=== PATIENT | female | born 1980 ===

== ENCOUNTER → 2023-01-27 13:48 | Outpatient (REF) | payer BC, SELFPAY ==
--- NOTE | 2023-01-27 13:55 | CA_ITS ---
Transthoracic Echocardiogram Patient (Last, First, Middle): Ember Garsia, Gender: Female Date of : 1980 Age: 42 Procedure Date: 01/27/2023 Procedure Type: Transthoracic Echocardiogram Location: Person Height: 167.64 cm Weight: 111.13 kg BSA: 2.18 m2 Heart Rate: bpm BP: 106 / 70 mmHg Polishing Pad Mounter: Referring MD: Gael Romero MD Yarding Supervisor: Davide Valdovinos MD Symptoms: ABNORMAL EKG R94.31 Study Quality: Fair w Contrast ECG Rhythm: Sinus Conclusions: - Essentially normal study Findings Procedure Information Contrast agent, definity, is being given per protocol without apparent complications. Left Ventricle Normal left ventricular size, thickness, and systolic function. The visually estimated ejection fraction is between 55-60%. Spectral Doppler is indicative of a normal filling pattern. Right Ventricle Normal right ventricular cavity size and systolic function. Atria Both atria are normal in size. Interatrial shunt cannot be excluded. Aortic Valve The aortic valve structure and function is likely normal. There is no aortic valve stenosis. There is no aortic valve regurgitation. Mitral Valve Normal mitral valve structure and function. There is trace mitral valve regurgitation. There is no mitral valve stenosis. Pulmonic Valve The pulmonic valve is likely normal. Tricuspid Valve Normal tricuspid valve structure. There is trace tricuspid valve regurgitation. The right ventricular systolic pressure is normal. The right ventricular systolic pressure is 19 mmHg. Normal right atrial pressure. There is no evidence of pulmonary hypertension. Great Vessels All visible segments of the aorta are normal in size. The pulmonary artery was not well visualized. Venous The inferior vena cava is mildly dilated and collapses greater than 50% with inspiration. Pericardium/Pleural There is no evidence of pericardial effusion. Prior Study Comparison No significant change compared to prior study dated: 01/30/2014. Measurements 2D Linear Measurements IVSd: 1.00 0.6-0.9/0.6-1.0 cm LVIDd: 4.90 3.9-5.3/4.2-5.9 cm LVIDd Index: 2.25 2.4-3.2/2.2-3.1 cm/m2 LVIDs: 3.20 2.0-3.6 cm LVPWd: 0.90 0.7-1.1 cm LA Diam: 3.20 2.7-3.8/3.0-4.0 cm LAIDs Index: 1.47 1.5-2.3 cm/m2 LV Mass: 204.65 67-162/88-224 g LV Mass Index: 93.88 43-95/49-115 g/m2 LVOT Diam: 2.20 3.0+(-)1.3 cm 2D Systolic Function EF 4C: 57.70 >55% EF 2C: 59.60 >55% EF BiP: 59.60 >55% Mitral Valve MV Pk E: 0.61 MV PK A: 0.67 MV Decel Time: 224.00 E/A: 0.90 E'Lateral: 10.10 E'Medial: 9.03 E/E' Med: 6.70 E/E' Lat: 6.00 PHT: 66.00 MVA PHT: 3.33 Decel Keith: 2.71 Aortic Valve AoV Pk Marques: 1.32 AoV Mn Marques: 0.89 AoV VTI: 0.26 AoV Pk Grad: 7.00 Aov Mn Grad: 4.00 PERLA Cont.VTI: 2.70 LVOT LVOT Pk Marques: 0.93 LVOT Mn Marques: 0.57 LVOT VTI: 0.18 LVOT Pk Grad: 3.00 LVOT Mn Grad: 2.00 LVOT Diam: 2.20 LVOT Area: 3.80 Diastolic Function MV Pk E: 0.61 MV Pk A: 0.67 E/A: 0.90 E'Medial: 9.03 E/E' Med: 6.70 E' Laterial: 10.10 E/E' Lat: 6.00 Right Ventricle TAPSE (mm): 25.70 TVS' Marques: 13.40 Tricuspid Valve TR Pk Marques: 2.00 TR Pk Grad: 16.00 RA Press: 3.00 RVSP: 19.00 Great Vessels Aorta Sinus of Valsalva: 2.60 2.0-3.[address] Ridge: 2.40 1.7-3.4 cm Ao Asc: 3.20 2.1-3.4 cm Updated in Other Vendor System with Status of Final Davide Valdovinos MD electronically signed on 01/28/2023 11:51:25 AM with status of Final
== END ==
LOC: HO.CARD 13:48
PROVIDERS: PCP Family Medicine; Visit Provider Family Medicine
DX: R94.31 Abnormal electrocardiogram [ECG] [EKG] (principal)
CPT/HCPCS: 93306; Q9957

== ENCOUNTER → 2023-01-27 13:55 | Outpatient (BNV) | payer BC, SELFPAY | PROVIDERS: PCP Family Medicine; Visit Provider Internal Medicine Cardiovascular Disease | DX: R94.31 Abnormal electrocardiogram [ECG] [EKG] (principal) | CPT/HCPCS: 93306 ==

== ENCOUNTER 2023-01-31 08:40 | Emergency (ER) | payer BC, SELFPAY ==
--- NOTE | ~2023-01-31 | XR_ITS ---
EXAMINATION: XR KNEE, RIGHT CLINICAL INFORMATION: Fall, medial tenderness COMPARISON: None available. TECHNIQUE: Two views of the right knee. FINDINGS: Alignment is anatomic. Minimal medial compartment joint space narrowing. No visible acute fracture or dislocation. No significant joint effusion. XR/XR knee RT 2V IMPRESSION: No radiographic evidence of acute osseous abnormality.
--- NOTE | ~2023-01-31 | XR_ITS ---
EXAMINATION: XR ANKLE, RIGHT CLINICAL INFORMATION: Fall, lateral malleolus tenderness. COMPARISON: None available. TECHNIQUE: AP, lateral, and mortise views of the right ankle. FINDINGS: Lateral ankle soft tissue swelling. There is an oblique mildly displaced fracture of the lateral malleolus. No additional fractures identified. Anterior calcaneal process, fifth metatarsal base appears intact. Ankle mortise is maintained. XR/XR ankle RT 2V IMPRESSION: Lateral ankle soft tissue swelling. Oblique mildly displaced fracture of the lateral malleolus.
[2023-01-31 08:50] VITALS: BP 123/73; PULSE 68; RESP 18; O2SAT 100
[2023-01-31 08:53] VITALS: BP 123/73; PULSE 70; RESP 16; TEMP 36.5; O2SAT 100; BMI 39.7
--- NOTE | 2023-01-31 08:54 | ED.GENADULT ---
HPI - General Adult General Chief complaint: Extremity Injury, Lower Stated complaint: R ankle fracture Time Seen by Provider: 01/31/23 08:54 Source: patient Mode of arrival: ambulatory Limitations: no limitations History of Present Illness HPI narrative: Patient is a 42-year-old female presenting to the emergency department with right ankle and right knee pain after a slip and fall last night. Patient states that she had been drinking alcohol at a alliance party, was walking down a hill and the grass was wet which caused her to slip and fall. She reports that her right leg slid underneath her and she landed with her knee flexed on top of her leg. Denies hitting head, denies loss of consciousness. States friends applied ice to the affected areas. She did not take any Tylenol or ibuprofen as she had been drinking. States later on last night she went swimming in a pool because she thought it would decrease her pain but it did not help. Denies any numbness or tingling. MD complaint: right ankle and knee pain Onset (ago): hour(s) Location: lower extremity Radiation: non-radiation Severity: severe Quality: aching Pain Consistency: constant Relieving factors: rest Exacerbating factors: movement Associated symptoms: denies other symptoms Treatments prior to arrival: none Related Data Allergies Allergy/AdvReac Type Severity Reaction Status Date / Time No Known Allergies Allergy Verified 01/31/23 08:58 Review of Systems Review of Systems: As per HPI. Yes all other systems are reviewed and are negative Constitutional: Constitutional: Reports as per HPI [facility] Social History Social History Advance Directives: Yes Advance Directives Information Provided: Yes Advance Directives on File: No Physical Exam ED Vital Signs: Vital Signs - 24 hr 01/31/23 08:50 01/31/23 08:53 Temperature 97.7 F Pulse Rate 68 70 Respiratory Rate 18 16 Blood Pressure 123/73 123/73 Pulse Oximetry 100 100 Oxygen Delivery Method Room Air Room Air BMI result Body Mass Index 39.7 Vital signs have been reviewed and appear to be correct. Blood pressure normal. Heart rate normal. Respiratory rate normal. Temperature normal. Oxygen saturation normal. Const General: cooperative, healthy appearing and no acute distress Orientation/consciousness: oriented to person, oriented to place, oriented to time and patient oriented x3 Limitations: no limitations HENMT Head: Yes normocephalic and Yes atraumatic Ears: external ears normal General nose exam: Normal external nose present Face and sinus: Yes face symmetric Mouth: oropharynx normal and moist mucous membranes Throat: Yes uvula midline Eyes Pupils: Equal, round and reactive pupils present Neck Neck: Yes normal visual inspection and Yes supple Resp Effort & Inspection: normal respiratory effort and able to speak in complete sentences Auscultation: clear to auscultation bilaterally Cardio Rate: regular rate Rhythm: regular rhythm Heart sounds: S1 normal heart sound present and S2 normal heart sound present GI Palpation (GI): Soft to palpation and nontender Auscultation: normoactive bowel sounds General: Yes no CVA tenderness Back/Spine/Pelvis Back: no CVA tenderness Skin General skin exam: elasticity normal and turgor normal Neuro General: oriented to person, oriented to place, oriented to time, patient oriented x3, moves all extremities, no focal motor deficits and CN's II-XI intact bilaterally Cranial nerves: Yes Equal, round and reactive pupils present Cognition (Neuro): normal cognition Extrem General: Yes full ROM, Yes normal exam except as noted, Yes no pedal edema and Yes no calf tenderness Right lower extremity: normal to inspection, knee Details: normal to inspection, tenderness Location: of the medial joint line, normal ROM and knee ligament exam normal; no swelling, ankle Details: tenderness Location: of the lateral malleolus, swelling Details: laterally and abnormal ROM Details: pain with active ROM Details: with plantar flexion, with dorsiflexion, with inversion (unable r/t pain) and with eversion (unable r/t pain) and foot Details: normal capillary refill, normal to inspection, toes with normal ROM and vascular exam Details: dorsalis pedis pulse present, posterior tibial pulse present and normal capillary refill; no tenderness Psych Mental Status: mental status grossly normal Affect: normal affect Thought process: Normal thought process present Medications Administered Discontinued Medications Generic Name Dose Route Start Last Admin Trade Name Freq PRN Reason Stop Dose Admin Acetaminophen 975 mg 01/31/23 08:58 01/31/23 09:13 Acetaminophen 325 Mg Tablet PO 01/31/23 08:59 975 mg ONCE ONE Administration Ibuprofen 600 mg 01/31/23 08:58 01/31/23 09:14 Ibuprofen 600 Mg Tablet PO 01/31/23 08:59 600 mg ONCE ONE Administration Procedures Orthopedic Splinting/Casting Injury #1: Side: right Lower Extremity Injury Location: ankle Lower Extremity Immobilizer: stirrup splint Other Orthopedic Equipment: crutches Additional Comments: +CMS distal prior to and after application of splint Medical Decision Making Medical Decision Making [facility] Narrative: Patient is a 42-year-old female presenting to the emergency department with right ankle and right knee pain after a slip and fall last night. On exam patient is awake, A+Ox3, VS WNL, afebrile, normal neurological exam without focal deficits, right knee normal to inspection, no edema or ecchymosis, full ROM, tenderness to medial joint line, right lateral ankle swelling and tenderness to palpation of lateral malleolous, tenderness to right foot, full range of motion to all toes of right foot, 2+ DP and PT pulses. Given reported symptoms and physical exam findings, initial differential includes sprain, strain, fracture. Unlikely dislocation. X-ray notable for mildly displaced fracture of lateral malleolus. My interpretation is in agreement with the radiologist's interpretation. Knee x-ray unremarkable, feel pain likely related to strain. JHON wrap applied knee, right ankle splinted as per procedure note. Patient given crutches with instruction. Instructed patient to follow-up with Orthopedics Wednesday. Advised patient to keep right ankle elevated while at rest, apply ice for 10-15 minutes at a time several times daily, alternate Tylenol and ibuprofen as needed for discomfort. Return precautions discussed at bedside. Patient instructed to follow-up with PCP as well. Patient verbalized understanding of and agreement with plan. Differential Diagnosis Differential Diagnoses: The differential diagnosis associated with the presentation includes As per MDM. Independent Interpretation I performed an independent interpretation of an: Plain X-Ray Interpretation: Right lateral malleolus fracture Radiology Impression Discussion of test interpretation with radiology: I have reviewed the radiologist's reading. Radiologist Impression: XR/XR ankle RT 2V IMPRESSION: Lateral ankle soft tissue swelling. Oblique mildly displaced fracture of the lateral malleolus. External Record Review External record reviewed: Inpatient record, Office record and Outpatient record Discharge Plan Discharge Clinical Impression: Fracture of lateral malleolus of right ankle, Strain of right knee Patient Disposition: Home, Self-Care Instructions: Ankle Fracture (DC), Crutch Instructions (ED), Knee Pain (ED) Additional Instructions: You have been evaluated in the emergency department today for right ankle and knee pain. Your x-ray showed an oblique mildly displaced fracture of the lateral malleolus, also known as an ankle fracture. A splint was applied in the emergency department today, it is important that you do not get the splint wet or remove the splint prior to seeing orthopedics. We have provided crutches for you to use while your ankle heals. Please rest, ice, and elevate your ankle while at rest. Do not bear weight on your right ankle until seen by orthopedics. We recommend you take 600mg ibuprofen every 6 hours or 650mg Tylenol every 6 hours as needed for pain. If needed you can alternate these medications so that you take 1 medication every 3 hours. For instance at noon take ibuprofen, then at 3:00 p.m. take Tylenol, then at 6:00 p.m. take ibuprofen. PLEASE CONTACT THE ORTHOPEDIC OFFICE THING WEDNESDAY MORNING FOR AN APPOINTMENT. Please schedule an appointment for follow-up with your primary care provider this week as well. Return to the emergency department if you experience worsening pain, numbness, tingling, change of color in your toes, or any other concerning symptoms. Referrals: [facility] [Provider Group]
[2023-01-31] MEDS: Acetaminophen 325 MG TABLET 975 MG PO (09:13)
[2023-01-31] MEDS: Ibuprofen 600 MG TABLET PO (09:14)
--- NOTE | 2023-01-31 10:32 | PC.NURSE ---
PT WAS SPLINTED BY PROVIDER, SHE WAS FITTED FOR CRUTCHES AND INSTRUCTED IN PROPER USE.
== END 2023-01-31 10:34 | disposition home or self-care (01) ==
PROVIDERS: Emergency Provider Emergency Medicine; PCP Family Medicine
DX: S82.891A Other fracture of right lower leg, initial encounter for closed fracture (principal); S86.911A Strain of unspecified muscle(s) and tendon(s) at lower leg level, right leg, initial encounter; W01.0XXA Fall on same level from slipping, tripping and stumbling without subsequent striking against object, initial encounter; Y93.9 Activity, unspecified; Y92.9 Unspecified place or not applicable; Y99.9 Unspecified external cause status
CPT/HCPCS: 29515; 73560; 73600; 99283

== ENCOUNTER 2024-02-01 18:34 | Emergency (ER) | payer BC, SELFPAY ==
[2024-02-01 18:36] VITALS: BP 124/80; PULSE 63; RESP 18; TEMP 36.6; O2SAT 98; BMI 41.5
--- NOTE | 2024-02-01 19:58 | ED.GENADULT ---
HPI - General Adult General Chief complaint: General Medical Stated complaint: referred my PCP for rabies vaccine Time Seen by Provider: 02/01/24 19:47 Source: patient, RN notes reviewed and old records reviewed Mode of arrival: ambulatory Limitations: no limitations History of Present Illness ED Provider: Anthony GARRIDO narrative: 43-year-old female presents for evaluation of ?I need my rabies vaccine. ? Patient reports that her dog got into a fight with a skunk last night. She states that the dog kill the skunk after a few minutes The patient's dog's mouth touched the patient's mouth while the patient was trying to control her dog She reports that she had the dad's gun tested for rabies and was told today that it was positive and to get vaccines. She was not bit or scratched by the skunk or her dog She has no wounds She has no complaints or concerns at this time Related Data Allergies Allergy/AdvReac Type Severity Reaction Status Date / Time No Known Allergies Allergy Verified 02/01/24 18:40 Review of Systems Constitutional: Constitutional: Denies body ache(s), Denies chills, Denies fever(s) and Denies headache(s) Eyes: Eyes: Denies blurry vision ENT: Denies headache(s) Cardiovascular: Cardiovascular: Denies chest pain and Denies dyspnea Respiratory: Respiratory: Denies dyspnea Gastrointestinal: Gastrointestinal: Denies abdominal pain, Denies nausea and Denies vomiting Musculoskeletal: Musculoskeletal: Denies stiffness Integumentary/Breasts: Skin/Breast: Denies wounds Neurologic: Denies headache(s) PMFSH Social History Social History Advance Directives: No Advance Directives Information Provided: No Do you have a plan to hurt others: No Plan Physical Exam ED Vital Signs: Vital Signs - 24 hr 02/01/24 18:36 Temperature 97.8 F Pulse Rate 63 Respiratory Rate 18 Blood Pressure 124/80 Pulse Oximetry 98 Oxygen Delivery Method Room Air BMI result Body Mass Index 41.5 Const General: healthy appearing, comfortable, no acute distress, alert and awake Nutritional Appearance: well nourished Orientation/consciousness: patient oriented x3 HENMT Head: Yes normocephalic and Yes atraumatic Eyes Eyelids: Yes eyelids normal Conjunctivae: conjunctivae normal Sclerae: sclerae normal Corneas: corneas normal Pupils: Equal, round and reactive pupils present EOM: EOMs intact bilaterally Neck Neck: Yes full ROM Resp Effort & Inspection: normal respiratory effort, able to speak in complete sentences and not labored GI Inspection: No distended Palpation (GI): Soft to palpation, not firm, nontender, no guarding and not rigid Skin General skin exam: elasticity normal Neuro General: patient oriented x3 Cranial nerves: Yes CN's II-XII intact bilaterally, Yes Equal, round and reactive pupils present and Yes Bilaterally intact EOM present Cognition (Neuro): normal cognition Extrem Other: Moving all extremities well without any obvious deformities Medical Decision Making Medical Decision Making MDM Narrative: The patient has no wounds warranting local rabies injection. She will be given the vaccine and immunoglobulin intramuscularly. She will be given an outpatient referral for further vaccine. Differential Diagnosis Differential Diagnoses: The differential diagnosis associated with the presentation includes Rabies exposure Dog bite Animal bite Rabies Discharge Plan Discharge Clinical Impression: Rabies exposure Patient Disposition: Home, Self-Care Instructions: Rabies (ED) Additional Instructions: Rab[place] with [place] [facility]: Upon discharge from the ED today, you will be contacted by the Infusion Center to schedule your follow up Rabies vaccines. You will need a total of 3 more injections. If for some reason you do not receive a call, please call the Infusion Center directly at [phone]. Follow up with your primary care provider after completion of the vaccine to have a titer drawn to ensure the vaccines effectiveness. Print Language: Vietnamese
[2024-02-01] MEDS: Rabies Vaccine, Human Diploid (Imovax) 1 ML VIAL IM (20:16)
[2024-02-01] MEDS: Rabies Immune Globulin/PF 900 UNIT/3 ML VIAL 2330 UNIT IM (20:21)
[2024-02-01 20:33] VITALS: BP 124/80; PULSE 63; RESP 18; TEMP 36.6; O2SAT 98
== END 2024-02-01 20:34 | disposition home or self-care (01) ==
PROVIDERS: Emergency Provider Emergency Medicine; PCP Family Medicine
DX: Z20.3 Contact with and (suspected) exposure to rabies (principal); Z23 Encounter for immunization
CPT/HCPCS: 90375; 90471; 90675; 96372; 99282; 99284

== ENCOUNTER 2024-02-04 08:56 | Outpatient (RCR) | payer BC, SELFPAY ==
[2024-02-04 09:01] VITALS: BP 126/86; PULSE 65; RESP 18; TEMP 36.6
[2024-02-04] MEDS: Rabies Vaccine, Human Diploid (Imovax) 1 ML VIAL IM (09:05)
== END 2024-02-04 09:15 | disposition home or self-care (01) ==
LOC: HO.INF 08:56
PROVIDERS: Visit Provider Physician Assistant
DX: Z20.3 Contact with and (suspected) exposure to rabies (principal)
CPT/HCPCS: 90471; 90675